=== PATIENT | female | born 1980 | race Caucasian/White ===

== ENCOUNTER → 2019-11-17 17:35 | Outpatient (BNVA) | payer SELFPAY | PROVIDERS: Visit Provider Family Medicine | DX: E03.9 Hypothyroidism, unspecified (principal); F41.9 Anxiety disorder, unspecified; R00.0 Tachycardia, unspecified | CPT/HCPCS: 84443 ==

== ENCOUNTER 2022-07-11 01:02 | Emergency (ER) | payer SELFPAY ==
[2022-07-11 01:05] VITALS: BP 130/88; PULSE 115; RESP 19; TEMP 36.6; O2SAT 99; BMI 35.6
--- NOTE | 2022-07-11 01:07 | XRR_ITS ---
PROCEDURE INFORMATION: Exam: XR Chest Exam date and time: 07/11/2022 1:13 AM Age: 42 years old Clinical indication: Patient HX: C/O palpitations with tachycardia; Additional info: SOB TECHNIQUE: Imaging protocol: Radiologic exam of the chest. Views: 1 view. COMPARISON: No relevant prior studies available. FINDINGS: Lungs: Unremarkable. No consolidation. Pleural spaces: Unremarkable. No pleural effusion. No pneumothorax. Heart/Mediastinum: Unremarkable. No cardiomegaly. Bones/joints: Unremarkable. XR/XR chest 1V portable [id number] IMPRESSION: No acute findings.
--- NOTE | 2022-07-11 01:08 | ECG_ITS ---
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 Measurements Intervals [place] Rate: 108 P: 39 [place]: 146 QRS: 47 QRSD: 103 T: 25 QT: 323 QTc: 434 Interpretive Statements SINUS TACHYCARDIA NONSPECIFIC T-WAVE ABNORMALITY ABNORMAL RHYTHM ECG No previous ECG available for comparison Electronically Signed On 07-11-2022 15:02:59 CDT by Po Kelley M.D. [id number] f
--- NOTE | 2022-07-11 01:09 | ED_ITS ---
HPI - Arrhythmia/Palpitations General: Chief Complaint: Arrhythmia/Palpitations Stated Complaint: HIGH HEART RATE Time Seen by Provider: 07/11/22 01:03 Source: patient and EMS Mode of arrival: EMS Limitations: no limitations History of Present Illness: 42-year-old female states that she had sudden onset of palpitations tonight states she has had this happen in the past states is usually resolved on its own in the past she is unknown what caused it states that tonight it would not resolve she called EMS her heart rate was in the 220s they have an EKG it does show SVT they gave her 6 mg adenosine and has since improved she feels much improved she denies any vomiting or diarrhea. Associated symptoms: Deny nausea or vomiting Review of Systems Const: Denies: fever(s), chills, body aches or change in appetite Eyes: Denies: blurry vision or eye discomfort ENMT: Denies: throat pain or dental pain Card: Reports: palpitations Resp: Denies: dyspnea GI: Denies: abdominal pain, nausea, vomiting or diarrhea : Denies: dysuria Musc: Denies: neck pain or back pain Skin/Breast: Denies: rash Neuro: Denies: headache(s) Psych: Denies: depression Yvan/Lymph: Denies: easy bruising All/Imm: Denies: urticaria PFSH ED PFSH: Medical History (Updated 07/11/22 @ 02:26 by Matteo Stallings MD) Anxiety Hypothyroid Social History Smoking and tobacco status: never smoked Marital status: Physical Exam Const: COMMON NORMALS: no acute distress, patient oriented x3 and healthy appearing HENMT: COMMON NORMALS: normocephalic and atraumatic HEAD & SCALP: normocephalic and atraumatic Eye: COMMON NORMALS: Equal, round and reactive pupils present and EOMs intact bilaterally PUPIL: Yes Equal, round and reactive pupils present Neck/C-Spine: COMMON NORMALS: full ROM and supple Chest: COMMONS NORMALS: normal inspection of the chest and normal palpation of entire chest wall Resp: COMMON NORMALS: normal respiratory effort, No retractions, No use of a ccessory muscles and clear to auscultation bilaterally AUSCULTATION: clear to auscultation bilaterally Cardio: COMMON NORMALS: regular rate, regular rhythm and No murmurs present (Cardio) RATE: regular rate and tachycardic RHYTHM: regular rhythm GI: COMMON NORMALS: Normal to inspection, nondistended, normoactive bowel sounds present, Soft to palpation, non-tender and no masses PALPATION: Yes Soft to palpation Extremity: COMMON NORMALS: normal to inspection and full ROM Neuro: COMMON NORMALS: patient oriented x3, moves all extremities and no focal motor deficits Psych: COMMON NORMALS: mental status grossly normal, Normal thought process present and cooperative THOUGHT PROCESS: Normal thought process present Skin: COMMON NORMALS: no rashes or lesions noted and no wounds GENERAL SKIN EXAM: no rashes or lesions noted Course Vital Signs: Vital signs: Vital Signs Temperature 97.9 F 07/11/22 01:05 Pulse Rate 115 H 07/11/22 01:05 Respiratory Rate 19 H 07/11/22 01:05 Blood Pressure 130/88 07/11/22 01:05 Pulse Oximetry 99 07/11/22 01:05 Oxygen Delivery Me thod 07/11/22 01:05 MDM - Arrhythmia/Palpitations Medical Decision Making Patient presents here with SVT she is converted she is well-appearing here has some mild hyponatremia she is not been taking her Synthroid or her metoprolol we will start her back on those she is to follow-up with her PCP along with cardiology return if worsening. Lab Data : 07/11/22 01:00 07/11/22 01:00 Radiology Impressions Chest X-Ray 07/11/22 01:07 IMPRESSION: No acute findings. Laboratory Results WBC 15.7 10^3/uL (4.0-10.0) H 07/11/22 01:00 RBC 5.01 10^6/uL (4.1-5.3) 07/11/22 01:00 Hgb 14.5 g/dL (11.5-15.3) 07/11/22 01:00 Hct 43.4 % (37.0-47.0) 07/11/22 01:00 MCV 86.6 fl (81-99) 07/11/22 01:00 MCH 28.9 pg (28.0-34.0) 07/11/22 01:00 MCHC 33.4 g/dL (30.0-36.0) 07/11/22 01:00 RDW 12.7 % (12.1-15.1) 07/11/22 01:00 Plt Count 555 10^3/cmm (130-400) H 07/11/22 01:00 MPV 10.4 fL (7.4-10.4) 07/11/22 01:00 Neut % (Auto) 55.4 % 07/11/22 01:00 Lymph % (Auto) 34.6 % 07/11/22 01:00 Norman % (Auto) 8.0 % 07/11/22 01:00 Eos % (Auto) 1.2 % 07/11/22 01:00 Baso % (Auto) 0.4 % 07/11/22 01:00 Neut # (Auto) 8.70 10^3/uL (1.8-7.7) H 07/11/22 01:00 Lymph # (Auto) 5.4 10^3/uL (0.8-4.8) H 07/11/22 01:00 Norman # (Auto) 1.3 10^3/uL (0.2-0.9) H 07/11/22 01:00 Eos # (Auto) 0.2 10^3/uL (0.0-0.8) 07/11/22 01:00 Baso # (Auto) 0.1 10^3/uL (0.0-0.1) 07/11/22 01:00 Nucleated RBC % (auto) 0 % 07/11/22 01:00 Nucleated RBCs # 0.0 /100WBC 07/11/22 01:00 Sodium 138 mmol/L (136-145) 07/11/22 01:00 Potassium 2.9 mmol/L (3.5-5.1) L 07/11/22 01:00 Chloride 101 mmol/L (98-107) 07/11/22 01:00 Carbon Dioxide 23 mmol/L (22-29) 07/11/22 01:00 Anion Gap 16.9 (5-19) 07/11/22 01:00 BUN 11 mg/dL (6-20) 07/11/22 01:00 Creatinine 0.8 mg/dL (0.5-0.9) 07/11/22 01:00 GFR Calculation 78.3 mL/min (90-130) L 07/11/22 01:00 Glucose 108 mg/dL (65-115) 07/11/22 01:00 Calculated Osmolality 286 mOsm/kg (285-295) 07/11/22 01:00 Calcium 9.1 mg/dL (8.5-10.5) 07/11/22 01:00 Total Bilirubin 0.3 mg/dL (0.15-1.2) 07/11/22 01:00 AST 15 U/L (0-32) 07/11/22 01:00 ALT 17 U/L (0-33) 07/11/22 01:00 Alkaline Phosphatase 104 U/L (35-105) 07/11/22 01:00 Total Protein 7.9 g/dL (6.6-8.7) 07/11/22 01:00 Albumin 4.5 g/dL (3.5-5.2) 07/11/22 01:00 Globulin 3.4 g/dL (1.3-4.6) 07/11/22 01:00 TSH 5.06 uIU/mL (0.27-4.20) H 07/11/22 01:00 EKG Data EKG 1: I personally reviewed and interpreted this EKG as follows: EKG interpretation date: 07/11/22 EKG interpretation time: 01:10 Interpretation: sinus tach hr [address] or t wave abnormalities qrs 103 qtc 387 Other EKG comments: Chest X-Ray 07/11/22 01:07 IMPRESSION: No acute findings. Discharge Plan Discharge Patient Disposition: Home Clinical Impression: Supraventricular tachycardia, Hypokalemia Condition: Stable Prescriptions: New potassium chloride 40 mEq/15 mL liquid 40 meq PO BID 5 Days Qty: 150 0RF Continued levothyroxine 25 mcg tablet 25 mcg PO DAILY Qty: 30 5RF Changed metoprolol tartrate 25 mg tablet 12.5 mg PO BID Qty: 60 5RF No Action citalopram 20 mg tablet 20 mg PO DAILY Qty: 30 5RF Discharge Orders: Discharge ED (Routine); Ordered 07/11/22 Ordered By: Matteo Stallings Referrals: Po Kelley MD [Physician] - 1-3 days Discharge Diet: Advance as tolerated Discharge Activity: Resume usual activity Patient Instructions: Supraventricular Tachycardia (ED), Hypokalemia (ED) Coding Level of Care Code 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
[2022-07-11] MEDS: LORazepam 1 mg Tablet PO (01:18)
[2022-07-11] MEDS: sodium chloride 0.9% 1,000 ML 999 ML IV (01:20)
[2022-07-11 01:22] LABS: Basophils # 0.1 10^3/uL (0.0-0.1); Basophils % 0.4 %; Eosinophils # 0.2 10^3/uL (0.0-0.8); Eosinophils % 1.2 %; Hematocrit 43.4 % (37.0-47.0); Hemoglobin 14.5 g/dL (11.5-15.3); Lymphocytes # 5.4 10^3/uL (0.8-4.8); Lymphocytes % 34.6 %; Mean Corpuscular HGB Conc 33.4 g/dL (30.0-36.0); Mean Corpuscular Hemoglobin 28.9 pg (28.0-34.0); Mean Corpuscular Volume 86.6 fl (81-99); Mean Platelet Volume 10.4 fL (7.4-10.4); Monocytes # 1.3 10^3/uL (0.2-0.9); Neutrophils % 55.4 %; Nucleated Red Blood Cells % 0 %; Platelet Count 555 10^3/cmm (130-400); Red Blood Count 5.01 10^6/uL (4.1-5.3); Red Cell Distribution Width 12.7 % (12.1-15.1); White Blood Count 15.7 10^3/uL (4.0-10.0)
[2022-07-11 01:50] LABS: Alanine Aminotransferase 17 U/L (0-33); Albumin Level 4.5 g/dL (3.5-5.2); Alkaline Phosphatase 104 U/L (35-105); Anion Gap 16.9 (5-19); Aspartate Amino Transferase 15 U/L (0-32); Blood Urea Nitrogen 11 mg/dL (6-20); Calcium 9.1 mg/dL (8.5-10.5); Carbon Dioxide 23 mmol/L (22-29); Chloride 101 mmol/L (98-107); Globulin 3.4 g/dL (1.3-4.6); Glomerular Filtration Rate 78.3 mL/min (90-130); Glucose 108 mg/dL (65-115); Osmolality Calculated 286 mOsm/kg (285-295); Sodium 138 mmol/L (136-145); Thyroid Stimulating Hormone 5.06 uIU/mL (0.27-4.20); Total Bilirubin 0.3 mg/dL (0.15-1.2); Total Protein 7.9 g/dL (6.6-8.7)
[2022-07-11 01:54] LABS: Slide Review Slide Review Perform
[2022-07-11 02:11] LABS: Potassium 2.9 mmol/L (3.5-5.1)
[2022-07-11] MEDS: potassium chloride ER 20 mEq Tablet 40 MEQ PO (02:36)
[2022-07-11 02:47] VITALS: BP 130/88; PULSE 106; RESP 16; O2SAT 97
--- NOTE | 2022-07-11 14:53 | DCPLANNER ---
Addendum entered by Suzi Lovett 09/13/22 10:35: Patient had an appointment scheduled with heart care - appointment was rescheduled Addendum entered by Suzi Lovett 07/31/22 14:12: Patient has a follow up appointment scheduled for Saturday, September 10, 2022 at 3:[address] Gunderson. Clinic will call patient with appointment information. Original Note: manager [employer] had message to schedule a follow up appointment for patient with cardiology. manager [employer] sent patients information to the front office staff at [facility]. Patients information will be printed and reviewed. Clinic will call patient with appointment information.
== END 2022-07-11 02:48 | disposition home or self-care (01) ==
PROVIDERS: Emergency Provider Emergency Medicine
DX: I47.1 Supraventricular tachycardia (principal); E87.6 Hypokalemia
CPT/HCPCS: 71045; 80053; 84443; 85025; 93005; 96360; 99285; J7030

== ENCOUNTER → 2022-07-22 12:36 | Outpatient (BNVA) | payer SELFPAY | PROVIDERS: Visit Provider Nurse Practitioner Family | DX: E87.6 Hypokalemia (principal) | CPT/HCPCS: 80053 ==

== ENCOUNTER → 2022-08-20 08:28 | Outpatient (BNVA) | payer SELFPAY | PROVIDERS: Visit Provider Dermatology | DX: E03.9 Hypothyroidism, unspecified (principal); I10 Essential (primary) hypertension; Z01.89 Encounter for other specified special examinations ==

== ENCOUNTER 2022-12-25 08:23 | Outpatient (CLI) | payer OTHER, SELFPAY ==
--- NOTE | 2022-12-25 08:45 | USCV_ITS ---
Anup Michelle Age: 42 Gender: F : 1980 Exam Date: 12/25/2022 08:52 Ordering Phys: Donnie Fuller M.D ([email or web address]) Technologist: Garry Vilchis Exam Location: [facility] Indication: Shortness of breath BP: 124 / 70 HR: 75 Rhythm: Sinus Technical Quality: Adequate MEASUREMENTS (Male / Female) Normal Values 2D ECHO LV Diastolic Diameter PLAX 5.1 cm 4.2 - 5.9 / 3.9 - 5.3 cm LV Systolic Diameter PLAX 3.2 cm IVS Diastolic Thickness 0.8 cm 0.6 - 1.0 / 0.6 - 0.9 cm IVS Systolic Thickness 1.1 cm LVPW Diastolic Thickness 0.9 cm 0.6 - 1.0 / 0.6 - 0.9 cm LVPW Systolic Thickness 1.3 cm LVOT Diameter 2.0 cm LV Ejection Fraction 2D Teich 67.0 % LV Ejection Fraction MOD 2C 66.3 % LV Ejection Fraction 2C AL 68.0 % LA Diameter 3.0 cm LA Width 2.9 cm LA Height 4.1 cm RA Width 3.6 cm RA Height 4.1 cm Aorta at Sinotubular Diameter 2.3 cm M-MODE Aortic Annulus Diameter 2.6 cm LA Ao Ratio MM 1.1 MV E Point Septal Separation 0.7 cm DOPPLER AV Peak Velocity 117.3 cm/s LVOT Peak Velocity 86.0 cm/s AV Area Cont Eq vti 2.1 cm squared AV Area Cont Eq pk 2.3 cm squared MV Peak Velocity 103.0 cm/s MV Area PHT 4.3 cm squared Mitral E to A Ratio 1.6 MV E' Velocity 44.5 cm/s Mitral E to MV E' Ratio 5.8 Mitral E to LV E' Lateral Ratio 4.7 Mitral E to LV E' Septal Ratio 7.8 TR Peak Velocity 258.7 cm/s TR Peak Gradient 26.8 mmHg TR Mean Velocity 216.9 cm/s TR Mean Gradient 19.7 mmHg TR Velocity Time Integral 64.7 cm Right Atrial Pressure 8.0 mmHg Pulmonary Artery Systolic Pressu 34.8 mmHg PV Peak Velocity 116.0 cm/s RV Acceleration Time 0.1 s RV Ejection Time 0.3 s RV AcT/ET 0.4 FINDINGS Left Ventricle Left ventricle is normal in size. LV systolic function is normal with EF of 60 to 65%. No regional wall motion abnormalities are seen Right Ventricle Normal in size and function Right Atrium normal in size Left Atrium Normal in size Mitral Valve Structurally normal mitral valve.Trace mitral regurgitation. Aortic Valve Structurally normal aortic valve. No significant aortic stenosis or regurgitation is seen. Tricuspid Valve Mild tricuspid regurgitation. RVSP is 30 to 35 mmHg. Pulmonic Valve Not well-visualized. Trace pulmonic regurgitation. Pericardium Normal Aorta Normal in size IVC Not well visualized. CONCLUSIONS LV systolic function is normal with EF of 60 to 65%. Trace mitral regurgitation Mild tricuspid regurgitation Trace pulmonic regurgitation No comparison studies are available Donnie Fuller MD (Electronically Signed) Final Date: 04 January 2023 16:00 S
== END 2022-12-25 08:24 | disposition home or self-care (01) ==
PROVIDERS: PCP Family Medicine; Visit Provider Internal Medicine
DX: R06.02 Shortness of breath (principal); I07.1 Rheumatic tricuspid insufficiency
CPT/HCPCS: 93306

== ENCOUNTER → 2024-02-10 11:28 | Outpatient (BNVA) | payer OTHER, SELFPAY | PROVIDERS: PCP Family Medicine; Visit Provider Nurse Practitioner Family | DX: I10 Essential (primary) hypertension (principal); E03.9 Hypothyroidism, unspecified; F41.9 Anxiety disorder, unspecified; R00.0 Tachycardia, unspecified | CPT/HCPCS: 80053; 80061; 84443; 85025 ==

== ENCOUNTER → 2025-01-04 17:58 | Outpatient (BNVA) | payer BC, SELFPAY | PROVIDERS: Visit Provider Registered Nurse Neonatal Intensive Care | DX: M79.642 Pain in left hand (principal) | CPT/HCPCS: 73130 ==

== ENCOUNTER → 2025-07-12 16:03 | Outpatient (BNVA) | payer BC, SELFPAY | PROVIDERS: Visit Provider Nurse Practitioner Family | DX: I10 Essential (primary) hypertension (principal); F41.9 Anxiety disorder, unspecified; E03.9 Hypothyroidism, unspecified | CPT/HCPCS: 80053; 80061; 84443; 85025 ==